=== PATIENT | male | born 1955 | race Caucasian/White ===

== ENCOUNTER → 2019-08-22 | Outpatient (CLI) | payer OTHER | END | disposition home or self-care (01) | LOC: LABWHC1 11:34 | PROVIDERS: ATTEND Internal Medicine Cardiovascular Disease | DX: Z11.59 Encounter for screening for other viral diseases (principal) | CPT/HCPCS: 87635 ==

== ENCOUNTER 2019-08-26 08:05 | Day surgery (SDC) | payer OTHER ==
[2019-08-25 09:12] VITALS: BMI 40.3
[~2019-08-26 08:05] MED LIST: ALPRAZolam 0.25 MG TAB PO PRN; ALPRAZolam 0.5 MG TAB PO PRN; ASPIRIN 325 MG TAB PO STA; ATORVASTATIN 80 MG TAB PO STA; NITROGLYCERIN SL TABS 0.4 MG TAB SUBLINGUAL PRN; SODIUM CHLORIDE 0.9% 1,000 ML in EMPTY BAG 1 BAG IV ONE
[2019-08-26 08:50] LABS: Glucose,Whole Blood 160 mg/dL (75-99)
[2019-08-26] MEDS ORDERED: SODIUM CHLORIDE 0.9% 1,000 ML IV ONE (08:50)
[2019-08-26] MEDS ORDERED: fentaNYL (PF) 50 MCG/ML 2 ML AMP ONE (08:59)
[2019-08-26] MEDS ORDERED: IV FLUID CONTINUATION 950 ML IV ONE (09:06)
[2019-08-26 09:08] LABS: Basophils # (A) 0.1 k/uL (0-0.2); Basophils % (A) 1 %; Eosinophils # (A) 0.1 k/uL (0-0.7); Eosinophils % (A) 1 %; HCT 30.6 % (39.0-53.0); HGB 9.4 gm/dL (13.0-17.5); Hypochromasia Marked; Lymphocytes # (A) 0.7 k/uL (1.0-4.8); Lymphocytes % (A) 7 %; MCHC 30.6 g/dL (31.0-37.0); MCV 81.8 fL (80.0-100.0); Mean Platelet Volume 7.1; Monocytes # (A) 0.6 k/uL (0-1.0); Monocytes % (A) 5 %; Neutrophils # (A) 9.7 k/uL (1.3-7.7); Neutrophils % (A) 86 %; Platelet Count 373 k/uL (150-450); Poikilocytosis Slight; RBC 3.74 m/uL (4.30-5.90); RDW 15.9 % (11.5-15.5); WBC 11.3 k/uL (3.8-10.6)
[2019-08-26 09:11] LABS: African American GFR (CKD) >90 (>60 ml/min/1.73 sqM); Anion Gap 10 mmol/L; Blood Urea Nitrogen 14 mg/dL (9-20); Calcium 9.1 mg/dL (8.4-10.2); Carbon Dioxide 24 mmol/L (22-30); Chloride 103 mmol/L (98-107); Glucose 148 mg/dL (74-99); Non-African American GFR(CKD) >90 (>60 ml/min/1.73 sqM); Potassium 4.9 mmol/L (3.5-5.1); Sodium 137 mmol/L (137-145)
[2019-08-26] MEDS ORDERED: BENZOCAINE SPRAY 1 CAN TOPICAL ONE (09:37)
[2019-08-26] MEDS ORDERED: MIDAZOLAM 2 MG/2 ML VIAL IV ONE (09:37)
[2019-08-26] MEDS ORDERED: fentaNYL (PF) 50 MCG/ML 2 ML AMP IV ONE (09:40)
[2019-08-26] MEDS ORDERED: LIDOCAINE 1% INJ 10MG/ML (20 ML MDV) ONE (10:12)
--- NOTE | 2019-08-26 10:16 | ECHOT ---
TRANSESOPHAGEAL ECHOCARDIOGRAM TRANSESOPHAGEAL ECHO: PROCEDURE NOTE: After obtaining informed consent, transesophageal echocardiogram is performed in left lateral position using an Omni plane probe. The patient tolerated the procedure well without any obvious immediate complications. Patient received moderate conscious sedation. Total sedation time was 8 minutes. Patient presented to us with shortness of breath and an echocardiogram done at an outside hospital the felt that the patient has an ASD. FINDINGS: 1. Mitral valve appears anatomically normal. There is moderate mitral regurgitation noted. 2. Left atrium has normal size. 3. Right atrium appears severely enlarged. Right ventricle appear mildly enlarged. Left ventricle has normal size, shows normal LV function with an ejection fraction of 55%. Tricuspid valve shows severe tricuspid regurgitation. The jet seems to abut the interatrial septum. There is severe tricuspid regurgitation noted. RV systolic pressure by 2D echo shows severe pulmonary hypertension. 4. Interatrial septum, there is evidence of both the yoqg-uj-rdqlf and iryvl-sc-saty shunt across the septum suggestive of a small atrial septal defect or PFO. Agitated saline contrast study was performed. 5. Aorta shows mild atherosclerotic changes and aortic valve shows it is a 3-leaflet valve shows mild aortic regurgitation. CONCLUSION: 1. Moderate mitral regurgitation. Severe tricuspid regurgitation. 2. Severe pulmonary hypertension. 3. Severe right atrial enlargement and evidence of shunting across the interatrial septum. Both pbjg-nt-xpvom and aaqxi-xj-afho shunts have been identified. PLAN: Patient will undergo right and left heart catheterization and that will decide on further course of action. MMODL / IJN: [id number] /
[2019-08-26] MEDS ORDERED: LIDOCAINE 1% INJ 10MG/ML (20 ML MDV) SQ ONE (10:26)
[2019-08-26] MEDS ORDERED: IOPAMIDOL-370 50ML BTL INJ ONE (10:51)
[2019-08-26] MEDS ORDERED: FUROSEMIDE 10 MG/ML 4 ML VIAL ONE (11:04)
[2019-08-26] MEDS ORDERED: FUROSEMIDE 10 MG/ML 4 ML VIAL IVP ONE (11:05)
[2019-08-26 11:24] LABS: O2 Sat Blood Gas 48.1 %
[2019-08-26 11:27] LABS: O2 Sat Blood Gas 46.9 %
[2019-08-26 11:32] LABS: O2 Sat Blood Gas 96.5 %
[2019-08-26] MEDS ORDERED: BIVALIRUDIN BOLUS 250 MG/50 ML IV ONE (11:36)
[2019-08-26] MEDS ORDERED: BIVALIRUDIN 250 MG in SODIUM CHLORIDE 0.9% 50 ML IV ONE ×2 (11:38→12:18)
[2019-08-26] MEDS ORDERED: CLOPIDOGREL 75 MG TAB ONE (11:46)
[2019-08-26] MEDS ORDERED: IOPAMIDOL-370 125ML BTL INJ ONE (12:04)
[2019-08-26] MEDS ORDERED: CLOPIDOGREL 75 MG TAB PO ONE (12:15)
[2019-08-26] MEDS ORDERED: IOPAMIDOL-370 100ML BTL INJ ONE (12:24)
[2019-08-26] MEDS ORDERED: RX INFO: IV CONTRAST WAS GIVEN 1 EACH MISC MISCELLANE PRN (12:31)
[2019-08-26] MEDS ORDERED: MAG HYDROX/AL HYDROX/SIMETH 30 ML CUP PO PRN (12:31)
[2019-08-26] MEDS ORDERED: ATROPINE SULFATE 0.1 MG/ML 10ML SYRINGE IV PRN (12:31)
[2019-08-26] MEDS ORDERED: ZOLPIDEM 5 MG TAB PO PRN (12:31)
[2019-08-26] MEDS ORDERED: NITROGLYCERIN SL TABS 0.4 MG TAB SUBLINGUAL PRN (12:31)
[2019-08-26] MEDS ORDERED: SODIUM CHLORIDE 0.9% 1,000 ML IV SCH (12:45)
--- NOTE | 2019-08-26 13:25 | P.PCN ---
Date of Procedure: 08/26/19 Operative Findings: PERCUTANEOUS CORONARY INTERVENTION Performing physician Sam Archibald MD, RPVI Procedure performed 1. Successful stenting of the proximal left circumflex coronary artery using 3.5 x 15 mm Xience BEE with an excellent angiographic results 2. Successful balloon angioplasty of the distal right coronary artery using 3.0 x 10 mm Angiosculp balloon with an excellent angiographic results Indication This is a very pleasant 64-year-old gentleman who underwent a heart catheterization by Dr. Estrada earlier today for further evaluation of shortness of breath and chest discomfort and he was found to have critical disease involving the proximal left circumflex as well as intermediate disease involving the proximal LAD as well as severe disease involving the distal RCA. The decision was made towards percutaneous coronary intervention on the LCx as well as RCA Approach The right common femoral artery Complication None Level of sedation Moderate with sedation in length of 37 minutes Procedure description Please refer to diagnosed at heart catheterization was performed by Dr. Estrada earlier today. Anticoagulation was initiated using Angiomax. Subsequently I did engage the left main coronary artery using JL4 guide. I wire it using a whisper wire. After that I attempted advancing 3.5 x 15 mm stent but the stent won't cross the junction between the left main to the left circumflex in spite of using double wire with a run-through wire as well as whisper wire. I even tried advancing the stent over either wire and I was unable to get the stent to the LCx. At that point I decided to pull the wires out and also exchanged my guide into a better support guide and in this case I used an XB 35 guide. I did wire the left circumflex again using a run-through wire this time. Attempting advancing the stent over the run-through wire was unsuccessful again and at that point I decided to do balloon angioplasty. I did balloon angioplasty of the LCx using 3.0 x 12 mm balloon. Subsequently I was able to advance 3.5 x 15 mm Xience BEE where the stent was positioned under fluoroscopy guidance and deployed under 18 rebecca for 20 seconds. The following angiogram showed excellent angiographic results and the procedure was completed without any complication at that point on the LCx For the right coronary artery the initial plan was to do stenting of the PDA branch of the RCA but after I engaged the RCA using JR4 guide and take more pictures I realized that the PDA was smaller than 2 mm. But the distal RCA just before the bifurcation has what it seems to be severe in-stent restenosis. I did only balloon angioplasty using Angiosculp balloon were the balloon was inflated multiple times under 18 rebecca for 20 seconds. The following angiogram showed an excellent angiographic results and the procedure was completed without any complication Postprocedure management 1. Dual antiplatelet therapy 2. Risk factors modification 3. Standard groin care 4. Follow-up with the patient
[2019-08-26] MEDS: ALBUTEROL NEBULIZED 2.5 MG/3 ML INHALATION SCH ×2 (15:26→19:14)
--- NOTE | 2019-08-26 16:04 | CC ---
CARDIAC CATHETERIZATION REPORT INDICATION: 1. Shortness of breath. 2. Abnormal echo. 3. Pulmonary hypertension. PROCEDURE: Right and left heart catheterization. PROCEDURE NOTE: After obtaining informed consent, right and left catheterization were performed via the right femoral artery and vein using catheters. Patient tolerated the procedure well without any obvious immediate complication. Patient received moderate conscious sedation and total sedation time was 40 minutes. FINDINGS: 1. RIGHT HEART CATHETERIZATION: Right heart catheterization was incomplete. We were not able to float the Sterling Demarco catheter into the pulmonary artery. However, with the information that we obtained, RV systolic pressure is 60 mm. Systolic pressure was 40 mm and a mean pressure of 29 mm. The mean RV pressure was 23 mm. We were able to obtain O2 saturation and the femoral artery saturation was 96%. Right atrial saturation was 46% and right ventricular saturation of 48%. They did not seem to be significant left to right shunt. 2. LEFT HEART CATHETERIZATION: HEMODYNAMICS: Left ventricular end-diastolic pressure is 20 mm. There is no significant gradient across the aortic valve. 1. LEFT VENTRICULOGRAM: Left ventriculogram is performed in CARDONA position, shows enlarged left ventricle with preserved LV function with an ejection fraction of 50% to 55% with hypokinesis involving basal inferior wall. There is 2+ mitral regurgitation noted. 2. ANGIOGRAPHIC DATA: LEFT MAIN CORONARY ARTERY: Left main coronary artery appears calcified but is free of significant stenosis. Divides into left anterior descending coronary artery and circumflex coronary artery. Mid LAD shows a 50% stenosis, circumflex coronary artery showed a focal 80%-90% stenosis. Right coronary artery is a large dominant vessel. The previously stented segment appears patent just before the bifurcation into PDA and PLV. There is a 50% to 60% stenosis. The PDA shows a focal 80% stenosis. CONCLUSION: 1. Three-vessel coronary artery disease with significant stenosis involving circumflex coronary artery and distal right coronary artery. 2. Evidence of pulmonary hypertension with elevated pressures within the right ventricle and right atrium without significant evidence of shunt across the interatrial septum. PLAN: Patient will undergo angioplasty of the circumflex coronary artery and the right coronary artery. If symptoms do not improve, I will get an opinion from a cardiothoracic surgeon regarding the need to do mitral and tricuspid valve ring and closure of the PFO. The other option we have is to close the PFO percutaneously. I discussed these issues at length with the patient and his . MMODL / IJN: [id number] /
[2019-08-26 16:29] LABS: Glucose,Whole Blood 144 mg/dL (75-99)
[2019-08-26 20:23] LABS: Glucose,Whole Blood 171 mg/dL (75-99)
[2019-08-27 06:19] LABS: Glucose,Whole Blood 147 mg/dL (75-99)
[2019-08-27 06:28] LABS: Anisocytosis Slight; Basophils % (A) 0 %; Eosinophils # (A) 0.1 k/uL (0-0.7); Eosinophils % (A) 1 %; HCT 28.8 % (39.0-53.0); HGB 8.7 gm/dL (13.0-17.5); Hypochromasia Marked; Lymphocytes # (A) 0.8 k/uL (1.0-4.8); Lymphocytes % (A) 9 %; MCHC 30.1 g/dL (31.0-37.0); MCV 83.1 fL (80.0-100.0); Mean Platelet Volume 7.4; Monocytes # (A) 0.6 k/uL (0-1.0); Monocytes % (A) 7 %; Neutrophils # (A) 6.9 k/uL (1.3-7.7); Neutrophils % (A) 82 %; Platelet Count 325 k/uL (150-450); Poikilocytosis Slight; RBC 3.47 m/uL (4.30-5.90); RDW 16.1 % (11.5-15.5); WBC 8.4 k/uL (3.8-10.6)
[2019-08-27 07:00] LABS: African American GFR (CKD) >90 (>60 ml/min/1.73 sqM); Anion Gap 13 mmol/L; Blood Urea Nitrogen 13 mg/dL (9-20); Calcium 8.9 mg/dL (8.4-10.2); Carbon Dioxide 25 mmol/L (22-30); Chloride 102 mmol/L (98-107); Glucose 126 mg/dL (74-99); Non-African American GFR(CKD) >90 (>60 ml/min/1.73 sqM); Potassium 4.2 mmol/L (3.5-5.1); Sodium 140 mmol/L (137-145)
[2019-08-27] MEDS ORDERED: METOPROLOL TARTRATE 25 MG TAB PO SCH (09:00)
[2019-08-27] MEDS ORDERED: ASPIRIN 81 MG PO SCH (09:00)
[2019-08-27] MEDS ORDERED: POTASSIUM CHLORIDE ER 20 MEQ TAB.ER PO SCH (09:00)
[2019-08-27] MEDS ORDERED: amLODIPine 10 MG TAB PO SCH (09:00)
[2019-08-27] MEDS ORDERED: FUROSEMIDE 40 MG TAB PO SCH (09:00)
[2019-08-27] MEDS ORDERED: LINAGLIPTIN 5 MG TABLET PO SCH (09:00)
[2019-08-27] MEDS ORDERED: LISINOPRIL 20 MG TAB PO SCH (09:00)
[2019-08-27] MEDS: ALBUTEROL NEBULIZED 2.5 MG/3 ML INHALATION SCH ×2 (09:03→11:56)
[2019-08-27 10:42] VITALS: RESP 18
[2019-08-27] MEDS ORDERED: IPRATROPIUM-ALBUTEROL 3 ML NEB INHALATION PRN (10:55)
--- NOTE | 2019-08-27 10:55 | P.PN ---
Subjective Progress Note Date: 08/27/19 Discharge note This is a 64-year-old gentleman who was brought to the hospital by Dr. Estrada to undergo a NELSON with subsequent cardiac catheterization. Patient has been experiencing symptoms of shortness of breath, also had pulmonary hypertension and abnormal echo. The NELSON showed moderate mitral regurgitation, severe tricuspid regurg. Severe pulmonary hypertension. Severe right atrial enlargem ent and evidence of shunting across the antrum atrial septum, both ssbs-zr-spwha and laanu-gk-jzei shunts have been identified. Subsequent to that patient underwent cardiac catheterization with successful stenting of the proximal circumflex and distal right coronary artery. Patient was seen and examined this morning, overall feels well. Denies any chest discomfort. Oxygen saturation on room air with ambulation 85%, 96% on 2 L of oxygen. Blood pressure 114/70 with a heart rate in the 70s to 80s. Patient does use home O2. We will also had some Combivent to his discharge medications. Laboratory data from today, white blood cell count 8.4, hemoglobin 8.7, platelet count 325. Sodium 140, potassium 4.2, BUN 13 and creatinine 0.5. Objective - Vital Signs Vital signs: Vital Signs Temp 97.9 F 08/27/19 08:00 Pulse 80 08/27/19 09:12 Resp 18 08/27/19 08:10 BP 113/77 08/27/19 08:00 Pulse Ox 96 08/27/19 08:10 Intake & Output 08/26/19 08/27/19 08/27/19 18:59 06:59 18:59 Intake Total 2090.91 360 Output Total 625 650 450 Balance 1465.91 -650 -90 Weight 120.202 kg 118.8 kg Intake: IV 770.91 Sodium Chloride 0.9% 1, 0 000 ml @ 75 mls/hr IV . [id number] [facility] Rx#:[id number] Intake, IV Titration 900 Amount Sodium Chloride 0.9% 1, 900 000 ml @ 75 mls/hr IV . [id number] [facility] Rx#:[id number] Oral 420 360 Output: Urine 625 650 450 Other: Voiding Method Toilet Toilet Toilet Urinal Urinal Urinal # Voids 1 1 1 - Exam PHYSICAL EXAMINATION: GENERAL: 64-year-old gentleman in no acute distress at the time of my examination HEENT: Head is atraumatic, normocephalic. Pupils equal, round. Sclera anicteric. Conjunctiva are clear. Mucous membranes of the mouth are moist. Neck is supple. There is no elevated jugular venous pressure. No carotid bruit is heard. HEART EXAMINATION: S1 and S2 with systolic murmur is CHEST EXAMINATION: Lungs are clear to auscultation and precussion. No chest wall tenderness is noted on palpation or with deep breathing. ABDOMEN: Soft, nontender. Bowel sounds are heard. No organomegaly noted. EXTREMITIES: 2+ peripheral pulses with no evidence of peripheral edema and no calf tenderness noted. Right groin soft, no evidence of any hematoma. NEUROLOGIC [patient is awake, alert and oriented 3 - Labs CBC & Chem 7: 08/27/19 05:15 08/27/19 05:15 Labs: Abnormal Lab Results - Last 24 Hours (Table) 08/26/19 08/26/19 08/27/19 Range/Units 16:27 20:21 05:15 RBC 3.47 L (4.30-5.90) m/uL Hgb 8.7 L (13.0-17.5) gm/dL Hct 28.8 L (39.0-53.0) % MCHC 30.1 L (31.0-37.0) g/dL RDW 16.1 H (11.5-15.5) % Lymphocytes # 0.8 L (1.0-4.8) k/uL Creatinine (0.66-1.25) mg/dL Glucose (74-99) mg/dL POC Glucose (mg/dL) 144 H 171 H (75-99) mg/dL 08/27/19 08/27/19 Range/Units 05:15 06:18 RBC (4.30-5.90) m/uL Hgb (13.0-17.5) gm/dL Hct (39.0-53.0) % MCHC (31.0-37.0) g/dL RDW (11.5-15.5) % Lymphocytes # (1.0-4.8) k/uL Creatinine 0.57 L (0.66-1.25) mg/dL Glucose 126 H (74-99) mg/dL POC Glucose (mg/dL) 147 H (75-99) mg/dL Assessment and Plan Plan: Assessment and plan #1 status post angioplasty and stenting of the left circumflex and distal right coronary artery #2 status post NELSON which revealed moderate mitral regurg, severe tricuspid regurg, severe pulmonary hypertension, PFO #3 diabetes #4hypertension #5 hyperlipidemia #6 COPD, home O2 use Plan From cardiology's perspective, the patient may be able to be discharged home today. We'll make him a follow-up appointment to see Dr. Lundberg in the office post discharge. We will add Combivent to the patient's medication regime. He will also go home on aspirin 81 mg daily, Lipitor, Plavix, Lasix, lisinopril 40 mg daily, metoprolol 75 mg one tablet by mouth twice a day, and sublingual nitroglycerin as needed for chest pain. DNP note has been reviewed, I agree with a documented findings and plan of care. Patient was seen and examined.
[2019-08-27 11:09] LABS: Glucose,Whole Blood 177 mg/dL (75-99)
[2019-08-27 11:23] VITALS: BP 140/84; TEMP 97.6
[2019-08-27] MEDS ORDERED: CLOPIDOGREL 75 MG TAB PO SCH (12:00)
[2019-08-27 12:06] VITALS: PULSE 80
[2019-08-27] MEDS ORDERED: ATORVASTATIN 10 MG TAB PO SCH (21:00)
[2019-08-27] MEDS ORDERED: PANTOPRAZOLE 40 MG TABLET PO SCH (21:00)
[2019-08-27] MEDS ORDERED: ATORVASTATIN 40 MG TAB PO SCH (21:00)
[2019-08-28] MEDS ORDERED: RIVAROXABAN 20 MG TAB PO SCH (09:00)
== END 2019-08-27 12:55 | disposition home or self-care (01) ==
LOC: CATHCVL 08:05 → 3SCARD 12:24 → CATHCVL 08-27 12:55
PROVIDERS: ATTEND Internal Medicine Cardiovascular Disease
DX: I25.110 Atherosclerotic heart disease of native coronary artery with unstable angina pectoris (principal); I08.1 Rheumatic disorders of both mitral and tricuspid valves; I27.20 Pulmonary hypertension, unspecified; Q21.1 Atrial septal defect; I48.21 Permanent atrial fibrillation; I10 Essential (primary) hypertension; E11.9 Type 2 diabetes mellitus without complications; E78.2 Mixed hyperlipidemia; J44.9 Chronic obstructive pulmonary disease, unspecified; F17.210 Nicotine dependence, cigarettes, uncomplicated; Z79.82 Long term (current) use of aspirin; Z79.84 Long term (current) use of oral hypoglycemic drugs; Z79.01 Long term (current) use of anticoagulants; Z79.02 Long term (current) use of antithrombotics/antiplatelets
CPT/HCPCS: 94640 ×4; 94150; 93312; 93320; 93325; 93453; 92920; 80048 ×2; 85018; 82810; 85025 ×2; C9600; C1769 ×5; C1887 ×3; C1725 ×2; C1894 ×2; C1760; C1874; J2250; J1940; J2001; J3010; J0583; Q9967 ×3

== ENCOUNTER → 2019-09-08 | Outpatient (CLI) | payer OTHER | END | disposition home or self-care (01) | LOC: LABWHC1 10:32 | PROVIDERS: ATTEND Internal Medicine Interventional Cardiology | DX: Z11.59 Encounter for screening for other viral diseases (principal) ==

== ENCOUNTER 2019-09-09 07:37 | Day surgery (SDC) | payer OTHER ==
[2019-09-08 10:35] VITALS: BMI 39.5
[2019-09-09] MEDS ORDERED: SODIUM CHLORIDE 0.9% 1,000 ML IV ONE (08:12)
[2019-09-09 08:18] VITALS: TEMP 98
[2019-09-09] MEDS ORDERED: IPRATROPIUM-ALBUTEROL 3 ML NEB INHALATION PRN (08:20)
[2019-09-09 08:22] LABS: Glucose,Whole Blood 141 mg/dL (75-99)
[2019-09-09] MEDS ORDERED: LIDOCAINE 1% INJ 10MG/ML (20 ML MDV) ONE (08:44)
[2019-09-09] MEDS ORDERED: VERAPAMIL 2.5 MG/ML 2 ML AMP ONE (08:44)
[2019-09-09] MEDS ORDERED: HEPARIN SODIUM 1,000 UN/ML (10ML VL) ONE (08:45)
[2019-09-09] MEDS ORDERED: MIDAZOLAM 2 MG/2 ML VIAL IV ONE (08:57)
[2019-09-09] MEDS ORDERED: LIDOCAINE 1% INJ 10MG/ML (20 ML MDV) SQ ONE (09:04)
[2019-09-09] MEDS: VERAPAMIL SYRINGE (5 MG/10 ML) INTRAARTER ONE ×2 (09:05→09:22)
[2019-09-09] MEDS ORDERED: BIVALIRUDIN BOLUS 250 MG/50 ML IV ONE (09:06)
[2019-09-09] MEDS ORDERED: BIVALIRUDIN 250 MG in SODIUM CHLORIDE 0.9% 50 ML IV ONE (09:07)
[2019-09-09] MEDS ORDERED: ADENOSINE 180 MG in SODIUM CHLORIDE 0.9% 30 ML IVP ONE (09:18)
[2019-09-09] MEDS ORDERED: IOPAMIDOL-370 125ML BTL INJ ONE (09:24)
[2019-09-09] MEDS ORDERED: RX INFO: IV CONTRAST WAS GIVEN 1 EACH MISC MISCELLANE PRN (09:26)
[2019-09-09] MEDS ORDERED: SODIUM CHLORIDE 0.9% 1,000 ML IV SCH (09:30)
--- NOTE | 2019-09-09 10:20 | AS ---
ARTERIAL STUDY FFR OF THE LAD: DATE OF SERVICE: 09/09/2019 PERFORMING PHYSICIAN: Sam Archibald MD. PROCEDURE PERFORMED: Fractional flow reserve, FFR of the LAD. INDICATION: This is a 64-year-old gentleman who sees Dr. Lundberg in the office on a regular basis with history of coronary artery disease and prior stenting of the LCX, who continues to struggle with shortness of breath with exertion. He is known to have intermediate to severe disease involving the LAD and he was brought today to undergo an FFR of the LAD. APPROACH: Right radial artery. COMPLICATION: None. LEVEL OF SEDATION: Moderate with sedation length of 25 minutes. PROCEDURE DESCRIPTION: After obtaining an informed consent, the patient was brought to the cardiac lab support service tech. The right radial artery was cannulated using micropuncture technique, the micropuncture wire passed easily, then I placed a 6-Slovak sheath 11 cm at the right radial artery. After that. I did give the patient 2 mg of verapamil IA and anticoagulation with Angiomax was initiated using IV. Subsequently, after zeroing the Doppler wire and equalizing between the Doppler wire and the guiding catheter which was JL3.5 guiding catheter we did an FFR per IV adenosine infusion and the FFR came in to be at 0.83, which is above the ischemic threshold. CONCLUSION: Fractional flow reserve, FFR of the LAD was performed and the FFR came in to be at 0.83. POSTPROCEDURE MANAGEMENT: 1. Maximize medical treatment. 2. Follow up with the patient. MMODL / IJN: [id number] /
[2019-09-09 10:46] VITALS: RESP 16
[2019-09-09 15:29] VITALS: BP 147/66; PULSE 70
== END 2019-09-09 14:54 | disposition home or self-care (01) ==
LOC: CATHCVL 07:37
PROVIDERS: ATTEND Internal Medicine Interventional Cardiology
DX: I25.10 Atherosclerotic heart disease of native coronary artery without angina pectoris (principal); R06.02 Shortness of breath; I11.9 Hypertensive heart disease without heart failure; E78.2 Mixed hyperlipidemia; I08.1 Rheumatic disorders of both mitral and tricuspid valves; D64.9 Anemia, unspecified; Q21.1 Atrial septal defect; E78.00 Pure hypercholesterolemia, unspecified; I48.91 Unspecified atrial fibrillation; R18.8 Other ascites; J90 Pleural effusion, not elsewhere classified; I27.20 Pulmonary hypertension, unspecified; I48.11 Longstanding persistent atrial fibrillation; F17.210 Nicotine dependence, cigarettes, uncomplicated; E66.9 Obesity, unspecified; Z68.41 Body mass index [BMI] 40.0-44.9, adult; Z95.5 Presence of coronary angioplasty implant and graft; Z90.49 Acquired absence of other specified parts of digestive tract; Z79.899 Other long term (current) drug therapy; Z79.82 Long term (current) use of aspirin; Z79.01 Long term (current) use of anticoagulants
CPT/HCPCS: 94640; 93571; 93454; C1887; C1769; C1894; J2250; J2001; J0583; J0153; Q9967